=== PATIENT | female | born 1975 | race Caucasian/White ===

== ENCOUNTER 2024-11-05 10:34 | Observation (INO) | payer BC ==
[2024-11-05 10:41] VITALS: BMI 29.7
[2024-11-05] MEDS: SODIUM CHLORIDE 1,000 ML IV STA (11:54)
[2024-11-05 12:23] LABS: BASOPHILS # 0.07 x10^3/uL (0.01-0.08); MEAN PLT VOLUME 9.4 fl (9.4-12.3)
[2024-11-05 12:25] LABS: ABSOLUTE IMMATURE GRANULOCYTES 0.02 x10^3/uL (0.0-0.031); EOSINOPHIL % 5.6 % (0.7-5.8); EOSINOPHILS # 0.43 x10^3/uL (0.04-0.36); HEMATOCRIT 24.5 % (34.1-44.9); MCHC 24.5 g/dl (32.2-35.5); MEAN CELL VOLUME 57.5 fl (79.4-94.8); MONOCYTE % 5.2 % (4.7-12.5); PLATELET COUNT 449 x10^3/uL (182-369); RDW 21.8 % (12.2-17.1); Reticulocyte % 1.24 % (0.5-1.7)
[2024-11-05 12:30] LABS: INR 1.04 (0.83-1.09); PROTHROMBIN TIME (PATIENT) 11.4 SEC (9.7-13.0)
[2024-11-05 12:33] LABS: ACTIVATED PTT 25.9 SECONDS (25.2-36.5)
[2024-11-05 12:44] LABS: CHLORIDE 108 mmol/L (98-107); POTASSIUM 3.9 mmol/L (3.5-5.1); SODIUM 139 mmol/L (136-145)
[2024-11-05 12:45] LABS: CALCIUM 9.5 mg/dL (8.5-10.1); GLUCOSE,RANDOM 96 mg/dL (74-106)
[2024-11-05 12:46] LABS: ALBUMIN 3.9 g/dl (3.4-5.0); ANION GAP 5 mmol/L (4-13); BLOOD UREA NITROGEN 18.4 mg/dL (7-18); CO2 26 mmol/L (21-32)
[2024-11-05 12:48] LABS: BILIRUBIN,DIRECT 0.1 mg/dL (0.0-0.2)
[2024-11-05 12:51] LABS: BILIRUBIN,TOTAL 0.3 mg/dL (0.2-1); CREATININE 0.5 mg/dL (0.55-1.3); SGOT/AST 17 U/L (15-37); SGPT/ALT 18 U/L (13-61); TOTAL IRON BINDING CAPACITY 532 ug/dL (250-450)
[2024-11-05 12:52] LABS: ALK PHOS 112 U/L (45-117); TOT PROT 7.9 g/dl (6.4-8.2)
[2024-11-05 13:43] LABS: EPI CELLS 12 /uL (0-25.1); HYALINE CASTS 0 /uL (0-3.1); URINE BACTERIA 255 /uL (0-1359); URINE BILIRUBIN NEGATIVE (NEGATIVE); URINE COLOR YELLOW; URINE GLUCOSE (UA) NEGATIVE (NEGATIVE); URINE KETONE NEGATIVE (NEGATIVE); URINE LEUK ESTERASE NEGATIVE (NEGATIVE); URINE NITRITE NEGATIVE (NEGATIVE); URINE PROTEIN NEGATIVE (NEGATIVE); URINE RBC 24 /uL (0-23.9); URINE UROBILINOGEN 0.2 mg/dL (0.2-1.0); URINE WBC 7 /uL (0-25.8)
[2024-11-05 13:50] LABS: HCG,QUALITATIVE URINE Negative
[2024-11-05 13:54] LABS: URINE APPEARANCE CLEAR
[2024-11-05 18:07] LABS: LDH 172 U/L (84-246)
[2024-11-05] MEDS: IRON SUCROSE INJECTION 200 MG in SODIUM CHLORIDE 100 ML IVPB ONE ×2 (21:08→21:20)
[2024-11-05 21:48] VITALS: RESP 18
[2024-11-05 21:54] LABS: IRON SERUM 66 ug/dL (50-175)
[2024-11-06 00:05] LABS: HEMATOCRIT 25.3 % (34.1-44.9); HEMOGLOBIN 6.9 g/dL (11.2-15.7); MCHC 27.3 g/dl (32.2-35.5); MEAN CELL VOLUME 60.8 fl (79.4-94.8); PLATELET COUNT 362 x10^3/uL (182-369); RDW 25.8 % (12.2-17.1)
[2024-11-06 09:21] LABS: HEMATOCRIT 31.1 % (34.1-44.9); HEMOGLOBIN 8.8 g/dL (11.2-15.7); MCHC 28.3 g/dl (32.2-35.5); MEAN CELL VOLUME 59.8 fl (79.4-94.8); MEAN PLT VOLUME 9.5 fl (9.4-12.3); PLATELET COUNT 369 x10^3/uL (182-369); RDW 24.3 % (12.2-17.1)
[2024-11-06] MEDS: LISINOPRIL 20 MG TABLET PO SCH (09:50)
[2024-11-06 10:20] LABS: ALBUMIN 3.5 g/dl (3.4-5.0); BLOOD UREA NITROGEN 13.8 mg/dL (7-18); CALCIUM 8.7 mg/dL (8.5-10.1)
[2024-11-06 10:24] LABS: CREATININE 0.6 mg/dL (0.55-1.3)
[2024-11-06 10:25] LABS: BILIRUBIN,TOTAL 0.6 mg/dL (0.2-1); TOT PROT 7.3 g/dl (6.4-8.2)
[2024-11-06 14:23] VITALS: BP 138/67; PULSE 82; TEMP 98.4
[2024-11-06 15:38] LABS: HEMATOCRIT 32.3 % (34.1-44.9); MCHC 27.9 g/dl (32.2-35.5); MEAN CELL VOLUME 59.7 fl (79.4-94.8); PLATELET COUNT 360 x10^3/uL (182-369); RDW 25.2 % (12.2-17.1)
== END 2024-11-06 16:15 | disposition home or self-care (01) ==
LOC: JER 10:34 → JERBED 15:08 → J5S 18:05
PROVIDERS: ADMIT Internal Medicine; ATTEND Internal Medicine
PROC: 3E033GC Introduction of Other Therapeutic Substance into Peripheral Vein, Percutaneous Approach (ICD-10-PCS; principal; 2024-11-05)
PROC: 3E0337Z Introduction of Electrolytic and Water Balance Substance into Peripheral Vein, Percutaneous Approach (ICD-10-PCS; 2024-11-05)
PROC: 30233N1 Transfusion of Nonautologous Red Blood Cells into Peripheral Vein, Percutaneous Approach (ICD-10-PCS; 2024-11-05)
DX: D50.9 Iron deficiency anemia, unspecified (principal); N92.0 Excessive and frequent menstruation with regular cycle; D21.9 Benign neoplasm of connective and other soft tissue, unspecified; I10 Essential (primary) hypertension; Z29.9 Encounter for prophylactic measures, unspecified
CPT/HCPCS: 36415; 36430; 71046-TC-FY; 76830-TC; 80053; 81003; 82248; 82550; 82607; 82728; 82746; 83010; 83540; 83550; 83615; 84443; 84484; 84703; 85025; 85027; 85610; 85730; 86850; 86900; 86901; 86922; 93005; 93010; 99285-25; G0378; J1756; P9038; P9058